=== PATIENT | male | born 1945 | race Caucasian/White ===

== ENCOUNTER 2016-10-28 16:23 | Inpatient (IN) | payer MEDICARE, BC ==
--- NOTE | ~2016-10-28 | EKG ---
PATIENT: MORENITA HARRIS UNIT #: [id number] Ventricular Rate: 76 BPM Atrial Rate: 86 BPM P-R Interval: 184 ms QRS Duration: 94 ms Q-T Interval: 404 ms QTC Calculation(Bezet): 454 ms P [place]: 62 degrees Calculated R [place]: 50 degrees Calculated T [place]: 47 degrees Diagnosis Line: Sinus rhythm with marked sinus arrhythmia Diagnosis Line: Otherwise normal ECG Diagnosis Line: No previous ECGs available Diagnosis Line: Confirmed by BATSHEVA FREED MD ([id number]) on Diagnosis Line: 10/31/2016 8:09:03 AM INTERPRETING MD: JADEN
--- NOTE | ~2016-10-28 | DS ---
Unit #: [id number] #: [id number] Patient: MORENITA HARRIS [id number] [place], [place] [address] [id number] I MR#: [id number] NAME: MORENITA HARRIS ROOM: 577 Age: 71 Sex: M Admission Date: 10/28/2016 : 1945 Discharge Date: 10/31/2016 Attending Physician: Apollo Hughes M.D. Primary Care Physician: Sanjay Contreras M.D. DISCHARGE SUMMARY DISCHARGE DIAGNOSES 1. Acute on chronic diastolic heart failure. 2. Severe, uncontrolled hypertension. 3. Status post left and right cardiac catheterization, 10/31/2016, per Dr. Hughes at [facility] that revealed left main, left anterior descending and ramus intermedius branch normal. Left circumflex artery is a nondominant vessel, with mild plaque without significant stenosis. Right coronary artery is a large caliber vessel with presence of a long stent extending from the piqzatgi-tr-dki segment that is widely patent. Ejection fraction of 55%. Right heart pressures are normal with no evidence of [id number] interatrial shunt. 4. Two-dimensional echocardiogram, 07/30/2016, shows an ejection fraction of 60% to 65% with moderate concentric left ventricular hypertrophy. Mild aortic regurgitation. Mild mitral regurgitation and mild tricuspid regurgitation. Right ventricular systolic pressure 41 millimeters of mercury. 5. Hypertension. 6. Hyperlipidemia. 7. Diabetes mellitus type 2, insulin dependent. 8. History of percutaneous coronary intervention with stent placement to the right coronary artery in 2011. 9. History of pheochromocytoma. 10. Abdominal pain, questionable etiology. 11. Acute bronchitis. 12. Acute on chronic hypoxic respiratory failure. 13. Obstructive sleep apnea, on bilevel positive airway pressure. 14. Left lower lobe pneumonia. 15. Elevated D-dimer, ruled out for pulmonary embolism. 16. Anxiety. DISCHARGE MEDICATIONS 1. ProAir HFA 8.5 grams inhaled b.i.d. 2. Symbicort 160/4.5 mcg 2 inhalations b.i.d. 3. Advair Diskus 500/50 mcg 1 puff b.i.d. 4. Metformin 1,000 mg b.i.d. 5. Carvedilol 37.5 mg b.i.d. 6. Bumex 2 mg b.i.d. 7. Crestor 20 mg daily. 8. Clonidine 0.2 mg t.i.d. 9. Lisinopril 40 mg daily. 10. Novolin R 15 units subcu q.h.s. 11. Aspirin 81 mg daily. Unit #: [id number] #: [id number] Patient: MORENITA HARRIS 12. Potassium chloride 10 mEq daily. 13. Amaryl 4 mg b.i.d. 14. Amlodipine 5 mg b.i.d. HOSPITAL COURSE This is a 70-year-old male who was seen in the office prior to admission for a one-month complaint of worsening leg edema. He has also complained of right lower quadrant discomfort. He had dyspnea and paroxysmal nocturnal dyspnea. Because of fluid overload, the patient was admitted to the hospital. He was started on intravenous diuretics with Bumex. Chest x-ray was concerning for left lower lobe pneumonia. D-dimer was elevated; however, a CT angio of the chest ruled him out for pulmonary embolism or dissection. In regard to pneumonia, Levaquin intravenously was given. Dr. Trammell was asked to see the patient for pulmonary management. He was given IV Solu-Medrol, 4 doses, as a steroid burst. He was continued on inhalers. BiPAP was given at night for his obstructive sleep apnea. Levaquin was changed to oral. Because of continued complaint of abdominal discomfort, Dr. Will James was asked to see the patient. He had a prior CT of the abdomen and pelvis, which showed no acute abdominal findings. No further workup was required. The patient had uncontrolled hypertension. His antihypertensive medications were optimized with addition of amlodipine. Minoxidil was discontinued because of fluid overload. Once he was euvolemic, right and left cardiac catheterization was recommended to reevaluate his coronary anatomy because of dyspnea. The previously placed stent to his right coronary artery was widely patent. Circumflex, LAD and ramus intermedius branch were normal. There was insignificant plaque in the left circumflex artery. He was continued on medical management. Today the patient is symptomatically improved. IV diuretics were transitioned to oral. He received four doses of steroid intravenously. Dr. Trammell recommended that the patient could go home on his current therapy plus home oxygen. Continue BiPAP 23/07 for obstructive sleep apnea. He is stable for discharge today. ASSESSMENT VITAL SIGNS: Blood pressure 136/69, heart rate 72. CHEST: Diminished breath sounds. HEART: S1, S2 with regular rate and rhythm. ABDOMEN: Soft, nontender with bowel sounds present. EXTREMITIES: Without leg edema. CONSULTATIONS 1. Dr. Donta Trammell of pulmonology. 2. Dr. Will James of gastroenterology. DISCHARGE INSTRUCTIONS 1. The patient will be discharged home today. 2. Follow up with Dr. Hughes on December 23 at 2 p.m. 3. The patient will follow up in the office with Dr. Trammell as previously scheduled. 4. Continue oral diuretics with Bumex. Carvedilol has been increased to 37.5 mg b.i.d. Prescription has been provided for amlodipine. Unit #: [id number] #: [id number] Patient: MORENITA HARRIS Dictated by... Eric KiserPRaissaRRaissaN. for Erica Mast/dylan TD: 12/26/2016 09:52 JOB #: [id number] CC: Erica Funk M.D. DISCHARGE SUMMARY Page 1 of 1 X Jarvis Harris APRN X DISCHARGE SUMMARY
--- NOTE | ~2016-10-28 | EKG ---
PATIENT: MORENITA HARRIS UNIT #: [id number] Ventricular Rate: 72 BPM Atrial Rate: 72 BPM P-R Interval: 104 ms QRS Duration: 82 ms Q-T Interval: 398 ms QTC Calculation(Bezet): 435 ms P [place]: 49 degrees Calculated R [place]: 77 degrees Calculated T [place]: 63 degrees Diagnosis Line: Sinus rhythm with short MD Diagnosis Line: Otherwise normal ECG Diagnosis Line: When compared with ECG of 19-OCT-2016 10:41, Diagnosis Line: Premature atrial complexes are no longer Present Diagnosis Line: Confirmed by ESTEBAN QUINN MD ([id number]) on 10/29/2016 Diagnosis Line: 7:13:47 AM INTERPRETING MD: KAI HERBERT
--- NOTE | ~2016-10-28 | CR63 ---
[facility] A Service of [facility] & [facility] RADIOLOGY TEXT RESULTS PATIENT: MORENITA HARRIS LOCATION: [facility] 57-01 : 44 UNIT #: [id number] AGE: [address]: Apollo Hughes MD SEX: M ORDER DR: [id number] [facility] [address] [place], [place] [address] [id number] I MR#: [id number] Acc #: [id number] NAME: MORENITA HARRIS. : 1945 SEX: M STUDY DATE/TIME: 10/29/2016 7:24 UNIT: [facility] ROOM: [facility] STUDY DESCRIPTION: CR Chest 2 View Attending Physician: Apollo Hughes M.D. Ordering Physician: Apollo Hughes M.D. Primary Care Physician: Sanjay Contreras M.D. MEDICAL IMAGING REPORT This report is preliminary unless electronic signature is present EXAM Two-view chest 10/29/2016 INDICATIONS 70-year-old male with chest pain, shortness of air. Symptoms began to 10/19/2016. COPD, congestive heart failure. TECHNIQUE Frontal chest compared with 10/19/2016 FINDINGS Cardiac silhouette is enlarged. Vascularity is within normal limits. There is new obscuration of the left hemidiaphragm on the frontal view and there is new consolidation in the left lung base. There is a small amount of pleural fluid bilaterally. Imaging features are most characteristic of pneumonia on the left. Follow up to clearing recommended after appropriate therapy. No pneumothorax. There is underlying emphysema. IMPRESSION 1. Imaging findings most characteristic of left lower lobe pneumonia. Small effusions bilaterally. 2. Borderline to mild cardiomegaly. Underlying emphysema. Dictated by... Mihir Payne M.D. THIS IS AN ELECTRONICALLY VERIFIED REPORT Mihir Payne M.D. at 10/29/2016 5:45 PM Cam TD: 10/29/2016 08:16 JOB #: [id number] [facility] A Service of [facility] & [facility] RADIOLOGY TEXT RESULTS PATIENT: MORENITA HARRIS LOCATION: [facility] 577-01 : 44 UNIT #: [id number] AGE: [address]: Apollo Hughes MD SEX: M ORDER DR: MEDICAL IMAGING REPORT COPY
--- NOTE | ~2016-10-28 | CT16 ---
[facility] A Service of [facility] & [facility] RADIOLOGY TEXT RESULTS PATIENT: MORENITA HARRIS LOCATION: [facility] 577-01 : 44 UNIT #: [id number] AGE: [address]: Apollo Hughes MD SEX: M ORDER DR: [id number] [facility] [address] [place], [place] [address] [id number] I MR#: [id number] Acc #: [id number] NAME: MORENITA HARRIS : 1945 SEX: M STUDY DATE/TIME: 10/29/2016 19:40 UNIT: [facility] ROOM: [facility] STUDY DESCRIPTION: CT Angio Chest for PE Attending Physician: Apollo Hughes M.D. Ordering Physician: Physician Non-Staff Primary Care Physician: Sanjay Contreras M.D. MEDICAL IMAGING REPORT This report is preliminary unless electronic signature is present EXAM Chest CTA, 10/29 at 1940 hours INDICATIONS Elevated D-dimer on lab work last night. Cough with lower abdominal pain and swelling for 4 weeks. History of coronary artery disease. TECHNIQUE Axial images were obtained through the chest following IV contrast administration. 3-D reformatted images were obtained. Comparison is made with 08/06/2016. This CT exam was performed with one or more of the following radiation dose reduction techniques: Automatic exposure control, adjustment of mA and/or kV according to patient size, and iterative reconstruction. FINDINGS There is no pulmonary embolism or aortic dissection. There is coronary artery disease and atherosclerotic disease. There are small bilateral pleural effusions. The one on the left is similar in size to the prior study. The one on the right is new. There is emphysema. There is a 7 mm noncalcified left lower lobe nodule and there is a 5-6 mm noncalcified right upper lobe nodule. Both of these are stable since 04/04/2012 and are benign. Scattered granulomatous calcifications are present in the lungs as well. There is an additional 6 mm right upper lobe nodule, which is stable from 2011 and benign. There are some stable reticulonodular opacities in the lingula since 08/06/2016. There is some bronchiectasis with mild alveolar opacity in the left lower lobe, also stable from the 2016 study. No acute infiltrates are identified. There is an enlarged left hilar node measuring 2.0 x 1.6 cm. It previously measured 2.0 x 1.6 cm and is stable. Pretracheal node measures 2.0 x 1.3 cm. This is unchanged. Scattered other prominent mediastinal nodes appear stable as well. There is a large right hilar node measuring 1.9 x 1.5 cm. This has STS. [facility] A Service of [facility] RADIOLOGY TEXT RESULTS PATIENT: MORENITA HARRIS LOCATION: [facility] 577-01 : 44 UNIT #: [id number] AGE: [address]: Apollo Hughes MD SEX: M ORDER DR: not significantly changed allowing for differences in slice selection. It previously measured 1.7 x 1.5 cm. Upper abdomen demonstrates surgical clips in the left upper quadrant. There is stable enlargement of the right adrenal gland. IMPRESSION 1. No pulmonary embolism or aortic dissection. 2. Trace amount of right pleural fluid. Chest CT is otherwise not significantly changed from 08/06/2016. 3. Bilateral noncalcified pulmonary nodules are stable since 2011 and benign. Dictated by... Malcom Bhatt Jr., M.D. THIS IS AN ELECTRONICALLY VERIFIED REPORT Malcom Bhatt Jr., M.D. at 10/30/2016 4:47 AM FLOR/ivana TD: 10/30/2016 01:34 JOB #: [id number] MEDICAL IMAGING REPORT COPY
--- NOTE | ~2016-10-28 | CO ---
Unit #: [id number] #: [id number] Patient: MORENITA HARRIS [id number] [place], [place] [address] [id number] Antonio MR#: [id number] NAME: MORENITA HARRIS. ROOM: 577 Age: 70 Sex: M Admission Date: 10/28/2016 : 1945 Attending Physician: Apollo Hughes M.D. Primary Care Physician: Sanjay Contreras M.D. CONSULTATION REPORT DATE OF EXAMINATION 10/30/16 REASON FOR CONSULTATION Right lower quadrant abdominal pain. HISTORY OF PRESENT ILLNESS Mr. Harris is a very pleasant, 69-year-old white gentleman who has a past medical history of COPD, diabetes, hypertension and coronary artery disease. Patient was admitted with bilateral edema of the lower extremities along with fatigue and shortness of breath. I have been asked to see him because of right lower quadrant abdominal pain. This has been present for the past four to six weeks. It is intermittent, felt deep inside the right lower quadrant and is not related to meals or bowel movements and does not radiate to the back or inguinal area. The pain is somewhat related to partial but only vaguely. The patient denies any urinary symptoms such as dysuria or hematuria. There is no history of lower GI bleed in the form of hematemesis, melena or hematochezia. His appetite and weight are unchanged and, in general, he feels good. The patient had a colonoscopy done by Dr. Major in April of 2016. It showed a coincidental diminutive polyp, otherwise, examination was normal. PAST MEDICAL HISTORY Congestive heart failure, hypertension, hyperlipidemia, type 2 diabetes, COPD on two liters of home nasal cannula oxygen, obstructive sleep apnea on CPAP machine and coronary artery disease. The patient is due to have a heart catheterization tomorrow. There is also a history of previous TIAs, history of pheochromocytoma, status post left adrenal gland removal, history of esophageal stricture postdilation. PAST SURGICAL HISTORY Left adrenal gland removal. SOCIAL HISTORY He lives with his . He quit smoking more than 15 years ago. Until then, he had more than 60 pack year history of smoking. He does not drink alcohol. FAMILY HISTORY Heart disease in his father. ALLERGIES Doxycycline, Bactrim. Unit #: [id number] #: [id number] Patient: MORENITA HARRIS MEDICATIONS AT HOME 1. Crestor. 2. Glucophage. 3. Novolin insulin. 4. Potassium chloride. 5. Advair. 6. Ventolin. 7. Catapres. 8. Coreg. 9. Amaryl. 10. Hydralazine. REVIEW OF SYSTEMS Detailed review of organ system does not reveal any recent weight loss. No history of fever, chills, rigors headaches, seizure, chest pain or syncope. There is history of bilateral swelling of lower extremities which is now better. His appetite is unchanged and weight is unchanged too. No overt GI bleeding in the form of hematemesis, melena or hematochezia. No history of dysuria, hematuria, pyuria. No history of focal seizures or extremity weakness. No history of skin rash, aphthous ulcers in the mouth or reactive arthritis. PHYSICAL EXAMINATION GENERAL APPEARANCE: He is alert, oriented, afebrile, comfortable and ambulatory. He has no pallor, icterus, lymphadenopathy and grade one pitting peripheral edema. VITAL SIGNS: Stable. Temperature 97.7. Pulse 61 per minute, regular. Respiratory rate 19. Blood pressure 173/66. He weighs 174 lb. He is close to his baseline weight. CARDIOVASCULAR: Normal heart sounds. No murmurs on auscultation. LUNGS: Normal breath sounds. Good air entry. ABDOMEN: Soft, nontender. EXTREMITIES: Deep palpation of the right inguinal area does not illicit any guarding, rigidity or rebound. The abduction and extension of the hip joint is normal. The hernia sites on both inguinal areas are also normal. nontender. DIAGNOSTIC STUDIES LABORATORY: This shows a normal CBC and serum chemistry except for mild predominantly indirect hyperbilirubinemia of Gilbert syndrome. the patient's LFTs, BUN, creatinine, electrolytes all normal with blood glucose being 146. IMAGING: A CT scan of the abdomen is unremarkable. Urinalysis is also normal. As mentioned earlier, an upper endoscopy and a colonoscopy done about a year ago by Dr. Major were unremarkable. Etiology of patient's right lower quadrant intermittent pain is most likely integumentary or musculoskeletal. The possibility of a small bowel etiology is extremely slim. Suggest proceed with the heart catheterization tomorrow and, at some point, either as an inpatient or outpatient, consider a small bowel follow through. This will be discussed with Dr. Hughes as well and this will also be discussed with Dr. Hughes in person. Thank you very much for asking me to see this pleasant gentleman. I Unit #: [id number] #: [id number] Patient: MORENITA HARRIS appreciate the consult. Dictated by... Erica Gagnon TD: 10/31/2016 06:03 JOB #: [id number] CONSULTATION REPORT X Will James MD X CONSULTATION REPORT
--- NOTE | ~2016-10-28 | CO ---
Unit #: [id number] #: [id number] Patient: MORENITA HARRIS [id number] [place], [place] [address] [id number] I MR#: [id number] NAME: MORENITA HARRIS. ROOM: 577 Age: 70 Sex: M Admission Date: 10/28/2016 : 1945 Attending Physician: Apollo Hughes M.D. Primary Care Physician: Sanjay Contreras M.D. CONSULTATION REPORT HISTORY OF PRESENT ILLNESS Mr. Cadena is a 70-year-old white male with a history of COPD and chronic respiratory failure, maintained on home O2; chronic congestive heart failure; hypertension; hyperlipidemia; diabetes; MAU, maintained on BiPAP; history of pheochromocytoma, who presented because of increasing shortness of breath and lower extremity edema. He awaken with left anterior chest pain, sharp, stabbing, radiating to his back. He had noted increased lower extremity edema. He does wear CPAP on a nightly basis and he has been compliant and therapeutic on past visits. Here in the emergency room, chest x-ray suggested left lower lobe pneumonia. CT scan of the chest revealed some severe emphysematous changes, no pulmonary embolus, and some thickened bronchioles in the left lower lobe but no consolidative pneumonia. He has coughed up some green sputum, may have had a little low-grade fever a couple of weeks ago. PAST MEDICAL HISTORY Significant for diastolic congestive heart failure, coronary artery disease status post stents, hypertension, hyperlipidemia, diabetes, COPD on oxygen at 2 L, chronic respiratory failure, history of pulmonary nodules noted to be stable from [address] scan, history of TIA, history of pheochromocytoma status post left adrenal gland removal, history of esophageal stricture status post dilation. He is reformed smoker. PAST SURGICAL HISTORY Cardiac cath, left adrenal gland removal. HOME MEDICATIONS Hydralazine, Crestor, Glucophage, Novolin, potassium, Advair 250/50, Ventolin, Catapres, Coreg, and Amaryl. ALLERGIES Doxycycline and Bactrim. SOCIAL HISTORY He lives with his . Reformed smoker x14 years, smoked two packs a day for 30 years. No alcohol or illicit drugs. FAMILY HISTORY Positive for heart disease. REVIEW OF SYSTEMS A 10-point review of system, otherwise negative except for above. Unit #: [id number] #: [id number] Patient: MORENITA HARRIS PHYSICAL EXAMINATION VITAL SIGNS: Blood pressure 177/65, pulse 75, respiratory rate 18, and afebrile. HEENT: Normocephalic and atraumatic. Pupils are equal, round, reactive. Sclerae nonicteric. Nasal passages patent. Posterior pharynx, Mallampati IV. Poor dentition. NECK: Supple. Trachea midline. No cervical or supraclavicular lymphadenopathy. LUNGS: Reveal diminished breath sounds, prolonged expiratory phase. CARDIAC: Regular rate and rhythm. Could not appreciate murmur, rub, or gallop. ABDOMEN: Nontender. Bowel sounds present. EXTREMITIES: With 1+ edema. No cords palpated. Homans sign negative. SKIN: Warm and dry. PSYCHIATRIC: Affect calm. NEUROLOGIC: Awake, alert, and oriented x3. Cranial nerves intact. Muscle strength symmetric bilaterally. DIAGNOSTIC STUDIES LABORATORY RESULTS: Laboratory studies reviewed. Chemistries reviewed. Creatinine 0.9, glucose 146. BNP is 184. Cardiac enzymes are negative. White count 6400, hematocrit 36.7, and platelet count normal. IMPRESSION 1. Acute on chronic diastolic congestive heart failure. 2. Acute on chronic hypoxemic respiratory failure. 3. Chronic obstructive pulmonary disease with bronchitis, doubt pneumonia. 4. Obstructive sleep apnea, maintained on BiPAP 23/07. 5. Chest pain, rule out angina. PLAN Continue current inhalers. We will good brief burst of steroids. We will change Levaquin to 500 mg oral daily. Continue BiPAP at 23/07 with sleep. Further recommendations pending this. Dictated by... Alfredo Trammell M.D. LACIE/farideh TD: 10/30/2016 22:23 JOB #: [id number] CONSULTATION REPORT X Alfredo Trammell MD X CONSULTATION REPORT
[~2016-10-28 16:23] MED LIST: ACETAMINOPHEN PO; ADVAIR 250-501 EAC1 IH; ADVAIR 250-501 EACH; ADVAIR 250-501 EACH IH; ADVAIR 250-501 EACH IN; ALAVERT10 M1 PO; ALBUTEROL MININEB; ALBUTEROL MININEB IH; ALBUTEROL MININEB NEB; ALBUTEROL17 GM INH; AMARYL PO; AMBIEN10 MG PO; ASPIRIN81 M2 PO; BAYER CHEWABLE81 MG PO; BENADRYL PO; BRILINTA90 MG PO; BUMEX1 MG PO; CARDIZEM CD180 MG PO; CARDIZEM LA360 MG PO; CARVEDILOL25 MG PO; CATAPRES-TTS-20.2 MG; CATAPRES-TTS-20.2 MG EXT; CATAPRES-TTS-20.2 MG PO; CLONIDINE HCL0.1 MG PO; CLONIDINE PO; CLONIDINE TOP; COREG12.5 MG PO; COREG6.25 MG PO; CRESTOR PO; CRESTOR10 MG PO; DIOVAN HCT 3201 EACH PO; EPIPEN0.3 MG/0.1 IM; FAMOTIDINE PO; HUMALOG100 U/M2 SQ; HUMALOG100 U/ML INJ; HUMALOG100 U/ML SUBQ; HYDRALAZINE HC100 MG PO; HYDRALAZINE HCL50 MG PO; KCL PO; LANTUS100 U/ML SQ; LANTUS100 U/ML SUBQ; LEVAQUIN250 MG PO; LIPITOR PO; LISINOPRIL10 MG PO; LISINOPRIL20 MG PO; LORTAB 5/500 TA1 TA2 PO; LOSARTAN POTASS50 MG PO; METFORMIN HCL500 M1 PO; METFORMIN PO; MINIPRESS5 MG PO; NEURONTIN300 MG PO; NEXIUM PO; NORVASC PO; NOVOLIN N100 UNIT/1 SUBQ; NOVOLOG100 U/ML SQ; NOVOLOG100 U/ML SUBQ; OXYGEN; PEPCID40 MG PO; PHENOXYBENZAMINE; PLAVIX PO; PREDNISONE PO; PREDNISONE1 MG PO; PREDNISONE10 MG PO; PRINIVIL10 MG PO; PRINIVIL40 MG PO; SINGULAIR PO; STARLIX; STOOL SOFTENER100 M1 PO; ZITHROMAX PO; ZOCOR20 MG PO; [UNRECOGNIZED DRUG - OTHER] PO
[2016-10-28] MEDS ORDERED: ADVAIR 500-501 EACH INH (17:41)
[2016-10-28] MEDS ORDERED: ASPIRIN81 M2 PO (17:42)
[2016-10-28] MEDS ORDERED: BUMEX2 MG PO (17:42)
[2016-10-28] MEDS ORDERED: CARVEDILOL25 MG PO (17:42)
[2016-10-28] MEDS ORDERED: AMARYL PO (17:43)
[2016-10-28] MEDS ORDERED: CRESTOR PO (17:43)
[2016-10-28] MEDS ORDERED: CATAPRES-TTS-20.2 MG PO (17:43)
[2016-10-28] MEDS ORDERED: ZESTRIL40 MG PO (17:44)
[2016-10-28] MEDS ORDERED: METFORMIN HCL1000 M1 PO (17:45)
[2016-10-28] MEDS ORDERED: KCL PO (17:46)
[2016-10-28] MEDS ORDERED: MINOXIDIL2.5 MG PO (17:46)
[2016-10-28] MEDS ORDERED: NOVOLIN R100 UNITS/ SUBQ (17:47)
[2016-10-28] MEDS ORDERED: PROAIR HFA8.5 GM INH (17:49)
[2016-10-28 18:12] LABS: HEMATOCRIT 36.7 % (38.0-50.0); HEMOGLOBIN 12.3 gm/dL (13.0-16.0); MEAN CELL VOLUME 88.9 FL (83-96); MEAN CORPUSCULAR HEMOGLOBIN 29.7 PG (28-34); MEAN CORPUSCULAR HGB CONC 33.4 g/dL (30-36); MEAN PLATELET VOLUME 9.3 FL (6.5-11.5); RED BLOOD COUNT 4.13 X10e (3.90-5.60); RED CELL DISTRIBUTION WIDTH 15.4 % (11.0-15.5); WHITE BLOOD COUNT 6.4 X10e3 (4.0-10.5)
[2016-10-28 18:27] LABS: PARTIAL THROMBOPLASTIN TIME 33.8 SECONDS (23.5-31.3)
[2016-10-28 18:32] LABS: ALBUMIN SERUM 3.8 g/dL (3.5-5.0); ALKALINE PHOSPHATASE 74 U/L (32-92); ALT (SGPT) 13 U/L (10-40); AST (SGOT) 16 U/L (10-42); BILIRUBIN,TOTAL 1.4 mg/dL (0.2-2.0); BLOOD UREA NITROGEN 25 mg/dL (9-23); BUN/CREATININE RATIO 22.72; CALCIUM SERUM 8.1 mg/dL (8.4-10.2); CARBON DIOXIDE 30 mmol/L (22-31); CHLORIDE 112 mmol/L (100-111); CREATININE SERUM 1.1 mg/dL (0.6-1.4); GLOM FILT RATE Estimated ABOVE60 mL/min (>60); GLUCOSE FASTING 137 mg/dL (70-110); PROTEIN TOTAL SERUM 6.3 g/dL (6.0-8.3); SODIUM 145 mmol/L (135-145)
[2016-10-30 06:45] LABS: BLOOD UREA NITROGEN 22 mg/dL (9-23); BUN/CREATININE RATIO 24.44; CALCIUM SERUM 8.2 mg/dL (8.4-10.2); CARBON DIOXIDE 31 mmol/L (22-31); CHLORIDE 105 mmol/L (100-111); CREATININE SERUM 0.9 mg/dL (0.6-1.4); GLOM FILT RATE Estimated ABOVE60 mL/min (>60); GLUCOSE FASTING 146 mg/dL (70-110); POTASSIUM 3.5 mmol/L (3.5-5.1); SODIUM 143 mmol/L (135-145)
[2016-10-30 07:29] LABS: URINE APPEARANCE CLEAR; URINE BILIRUBIN NEG (NEG); URINE BLOOD NEG (NEG); URINE COLOR YELLOW; URINE GLUCOSE NEG (NEG); URINE KETONE NEG (NEG); URINE LEUKOCYTE ESTERASE NEG (NEG); URINE NITRATE NEG (NEG); URINE PROTEIN NEG (NEG); URINE SPECIFIC GRAVITY 1.026 (1.003-1.035)
[2016-10-30 07:35] LABS: CULTURE INDICATED? NO
[2016-10-31 05:29] LABS: HEMATOCRIT 38.9 % (38.0-50.0); HEMOGLOBIN 13.2 gm/dL (13.0-16.0); MEAN CELL VOLUME 87.7 FL (83-96); MEAN CORPUSCULAR HEMOGLOBIN 29.7 PG (28-34); MEAN CORPUSCULAR HGB CONC 33.9 g/dL (30-36); MEAN PLATELET VOLUME 9.9 FL (6.5-11.5); RED BLOOD COUNT 4.43 X10e (3.90-5.60); RED CELL DISTRIBUTION WIDTH 14.6 % (11.0-15.5); WHITE BLOOD COUNT 6.1 X10e3 (4.0-10.5)
[2016-10-31 05:38] LABS: INR 1.1; PARTIAL THROMBOPLASTIN TIME 35.2 SECONDS (23.5-31.3); PROTHROMBIN TIME (PATIENT) 11.4 SECONDS (9.6-11.5)
[2016-10-31 07:12] LABS: BLOOD UREA NITROGEN 33 mg/dL (9-23); CALCIUM SERUM 8.7 mg/dL (8.4-10.2); CARBON DIOXIDE 28 mmol/L (22-31); CHLORIDE 105 mmol/L (100-111); CREATININE SERUM 1.1 mg/dL (0.6-1.4); GLOM FILT RATE Estimated ABOVE60 mL/min (>60); GLUCOSE FASTING 234 mg/dL (70-110); MAGNESIUM 2.1 mg/dL (1.6-3.0); POTASSIUM 3.8 mmol/L (3.5-5.1); SODIUM 148 mmol/L (135-145)
[2016-10-31] MEDS ORDERED: LIPITOR PO (10:37)
[2016-10-31] MEDS ORDERED: LISINOPRIL20 MG PO (10:41)
[2016-10-31] MEDS ORDERED: SYMBICORT 160/4.6 G1 INH (10:42)
[2016-10-31] MEDS ORDERED: COREG PO (10:43)
[2016-10-31] MEDS ORDERED: AMLODIPINE BESYL5 MG PO (10:44)
[2016-10-31] MEDS ORDERED: METOPROLOL TAR25 MG PO (10:47)
== END 2016-10-31 17:39 | disposition home or self-care (01) | DRG 286 ==
LOC: C5C 16:23
PROVIDERS: Internal Medicine Cardiovascular Disease; Nurse Practitioner
PROC: B32TYZZ Computerized Tomography (CT Scan) of Left Pulmonary Artery using Other Contrast (ICD-10-PCS; 2016-10-29)
PROC: B32SYZZ Computerized Tomography (CT Scan) of Right Pulmonary Artery using Other Contrast (ICD-10-PCS; 2016-10-29)
PROC: B310YZZ Fluoroscopy of Thoracic Aorta using Other Contrast (ICD-10-PCS; 2016-10-29)
PROC: 4A023N7 Measurement of Cardiac Sampling and Pressure, Left Heart, Percutaneous Approach (ICD-10-PCS; principal; 2016-10-31)
PROC: B211YZZ Fluoroscopy of Multiple Coronary Arteries using Other Contrast (ICD-10-PCS; 2016-10-31)
PROC: B215YZZ Fluoroscopy of Left Heart using Other Contrast (ICD-10-PCS; 2016-10-31)
DX: I11.0 Hypertensive heart disease with heart failure (principal); J96.21 Acute and chronic respiratory failure with hypoxia; J18.9 Pneumonia, unspecified organism; E78.5 Hyperlipidemia, unspecified; Z95.5 Presence of coronary angioplasty implant and graft; J44.9 Chronic obstructive pulmonary disease, unspecified; E11.9 Type 2 diabetes mellitus without complications; Z79.4 Long term (current) use of insulin; Z99.81 Dependence on supplemental oxygen; G47.33 Obstructive sleep apnea (adult) (pediatric); Z86.73 Personal history of transient ischemic attack (TIA), and cerebral infarction without residual deficits; Z87.891 Personal history of nicotine dependence; I50.33 Acute on chronic diastolic (congestive) heart failure; R07.9 Chest pain, unspecified; R10.31 Right lower quadrant pain; I08.3 Combined rheumatic disorders of mitral, aortic and tricuspid valves; I73.9 Peripheral vascular disease, unspecified
CPT/HCPCS: 71020; 71275; 80048; 80053; 81003; 82947; 83735; 85027; 85379; 85610; 85730; 93005; 94640; 94664; 94760; C1769; C1887; J0360; J1644; J1815; J1956; J2250; J2920; J3010; Q9967